=== PATIENT | female | born 1980 | race African-American/Black ===

== ENCOUNTER 2020-04-12 09:47 | Emergency (ER) | payer OTHER ==
[2020-04-12 09:52] VITALS: BP 150/90; PULSE 86; TEMP 98.1; BMI 32.4
[2020-04-12] MEDS ORDERED: KETOROLAC TROMETHAMINE 30 MG/1 ML VIAL IM ONE (10:20)
== END 2020-04-12 11:23 | disposition home or self-care (01) ==
LOC: JERFT 09:47
PROC: 3E0233Z Introduction of Anti-inflammatory into Muscle, Percutaneous Approach (ICD-10-PCS; principal; 2020-04-12)
DX: M54.5 Low back pain (principal)
CPT/HCPCS: 72100-TC-FY; 73090-TC-LT-FY; 73110-TC-LT-FY; 99285-25

== ENCOUNTER 2021-05-10 20:07 | Emergency (ER) | payer OTHER ==
[2021-05-10 20:35] VITALS: BP 146/90; PULSE 72; TEMP 98; BMI 32.7
[2021-05-10] MEDS ORDERED: ONDANSETRON 4 MG/2 ML VIAL IVPUSH ONE (22:35)
[2021-05-10] MEDS ORDERED: FAMOTIDINE 20 MG/50 ML IVPB 20 MG/50 ML MG IVPB ONE ×2 (22:36→22:53)
[2021-05-10] MEDS ORDERED: ONDANSETRON 4 MG/2 ML VIAL ONE (22:53)
[2021-05-10 22:57] LABS: HEMATOCRIT 39.3 % (32.4-45.2); HEMOGLOBIN 13.8 GM/dL (10.7-15.3); MCH 29.4 pg (25.7-33.7); MCHC 35.1 g/dl (32.0-36.0); MEAN CELL VOLUME 83.8 fl (80-96); MEAN PLT VOLUME 8.3 fl (7.5-11.1); PLATELET COUNT 281 10^3/uL (134-434); RBC 4.69 M/mm3 (3.60-5.2); RDW 13.4 % (11.6-15.6); WHITE BLOOD COUNT 7.5 K/mm3 (4.0-10.0)
[2021-05-10 23:19] LABS: CHLORIDE 108 mmol/L (98-107); SODIUM 139 mmol/L (136-145)
[2021-05-10 23:21] LABS: ALBUMIN 3.8 g/dl (3.4-5.0); ANION GAP 7 MMOL/L (8-16); BLOOD UREA NITROGEN 8.8 mg/dL (7-18); CALCIUM 9.5 mg/dL (8.5-10.1); CO2 24 mmol/L (21-32); GLUCOSE,RANDOM 91 mg/dL (74-106); LIPASE 55 U/L (73-393)
[2021-05-10 23:24] LABS: CREATININE 0.7 mg/dL (0.55-1.3); SGOT/AST 15 U/L (15-37); SGPT/ALT 17 U/L (13-61)
[2021-05-10 23:26] LABS: BILIRUBIN,TOTAL 0.5 mg/dL (0.2-1); TOT PROT 7.3 g/dl (6.4-8.2)
[2021-05-10 23:27] LABS: ALK PHOS 95 U/L (45-117)
== END 2021-05-10 23:47 | disposition home or self-care (01) ==
LOC: JER 20:07 → JERFT 20:07
PROC: 3E033GC Introduction of Other Therapeutic Substance into Peripheral Vein, Percutaneous Approach (ICD-10-PCS; principal; 2021-05-10)
DX: R10.13 Epigastric pain (principal)
CPT/HCPCS: 36415; 80053; 83690; 84702; 85027; 99284-25